=== PATIENT | male | born 1970 | race Caucasian/White ===

== ENCOUNTER → 2021-07-10 | Outpatient (CLI) | payer BC, OTHER ==
[~2021-07-10] MED LIST: OMEPRAZOLE40 MG PO; ZESTRIL10 MG PO
== END ==
LOC: LAB 08:00 → OR 08:00 → EDSTATUS 09:30
PROVIDERS: ATTEND Internal Medicine Gastroenterology
DX: Z01.818 Encounter for other preprocedural examination (principal); Z12.11 Encounter for screening for malignant neoplasm of colon; D64.9 Anemia, unspecified; R19.5 Other fecal abnormalities; Z53.8 Procedure and treatment not carried out for other reasons
CPT/HCPCS: 93005